=== PATIENT | male | born 1995 | race Caucasian/White ===

== ENCOUNTER 2018-01-09 08:50 | Inpatient (IN) | payer OTHER ==
[~2018-01-09] VITALS: Ht 188 cm; Wt 90.7 kg
--- NOTE | 2018-01-09 13:50 | NUR ---
Pre-Assessment Pre-assessment completed in intake office. Pt. is a 22 y/o male, A/O X 4, appears well nourished and is dressed appropriately. Pt. is seeking treatment for his alcohol abuse. Pt. states that his last use was at 0400 this morning (01/09/2017). Pt. currently only reports some anxiety regarding his admission but denies any chills, visual and physical disturbances, pain of any kind and is currently not exhibiting any symptoms of withdrawals. Pt. reports a history of Asthma (pt. has an inhaler he uses BID), Narcolepsy (for which he takes no medications), and Depression (for which he takes Cymbalta) and anxiety. Currently the pt.'s V/S are BP: 138/82 P: 83 Temp: 98.5 O2sat: 96% RR:16 Pt. currently denying any pain. Current Home Medications: Duloxetine 60mg qD Symnicort inhaler Ventolin inhaler Substance Use Hx ETOH (Beer) 6-16 beers daily for the past 7-8 months first use was at age 12 last use was a this morning at 0400 pt. drank a 6 beers. Marijuana smokes 2 g a day for the past year and 6 months. Pt. first used when he was 12 and last use was this morning at 0400. Pt. 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 Pt. states that he started with a beer a day and then continued to progress to his current use. Pt. states that he uses ETOH to "numb myself and not feel." Pt. admits "at this point I use as a form of self medication and I know it." Pt. states that he's attempted to quit 3 times in the past but has not been able to make it past one single day without drinking beer. Pt. is currently attending an [facility] 3 times a week to better handle his depression.
[2018-01-09] MEDS ORDERED: ALBU18HF2 INH (14:13)
[2018-01-09] MEDS ORDERED: DULO60CA45 PO (14:13)
[2018-01-09] MEDS ORDERED: BUDE10.22 INH (14:15)
[2018-01-09] MEDS ORDERED: THIAMINE HCL 200 MG/2 ML VIAL IM ONE (14:30)
[2018-01-09] MEDS ORDERED: LORAZEPAM 1 MG TABLET PO PRN ×2 (14:30)
[2018-01-09] MEDS ORDERED: ACETAMINOPHEN 325 MG TABLET PO PRN (14:30)
[2018-01-09] MEDS ORDERED: MAG HYDROX/AL HYDROX/SIMETH 30 ML LIQUID UDC PO PRN (14:30)
[2018-01-09] MEDS ORDERED: ONDANSETRON 4 MG/2 ML VIAL IM PRN (14:30)
[2018-01-09] MEDS ORDERED: MIRALAX 17 GM POWD.PACK PO PRN (14:30)
[2018-01-09] MEDS ORDERED: IBUPROFEN 600 MG TABLET PO PRN (14:30)
[2018-01-09] MEDS ORDERED: ONDANSETRON ODT 4 MG TAB.RAPDIS SL PRN (14:30)
[2018-01-09] MEDS ORDERED: LOPERAMIDE HCL 2 MG CAPSULE PO PRN ×2 (14:30)
[2018-01-09] MEDS ORDERED: MAGNESIUM HYDROXIDE 30 ML LIQUID UDC PO PRN (14:30)
--- NOTE | 2018-01-09 14:30 | NUR ---
Admission Assessment Pt. is a 22 y/o male, A/O X 4, appears well nourished and is dressed appropriately. Pt. admitted for the medically managed withdrawal from ETOH. Pt. states that his last use was at 0400 this morning (01/09/2017). Pt. currently only reports some anxiety regarding his admission but denies any chills, visual and physical disturbances, pain. Pt. has begun to show some signs of diaphoresis, and some facial flushing with fine hand tremors. Pt. reports a history of Asthma (pt. has an inhaler he uses BID), Narcolepsy (for which he takes no medications), and Depression (for which he takes Cymbalta) and anxiety. Currently the pt.'s V/S are BP: 137/84 P: 74 Temp: 98.6 O2sat: 97% RR:18 Pt. currently denying any pain. Current Home Medications: Duloxetine 60mg qD Symnicort inhaler Ventolin inhaler Substance Use Hx ETOH (Beer) 6-16 beers daily for the past 7-8 months first use was at age 12 last use was a this morning at 0400 pt. drank a 6 beers. Marijuana smokes 2 g a day for the past year and 6 months. Pt. first used when he was 12 and last use was this morning at 0400. Pt. reports his use began right before he turned 21 y/o. 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 Pt. states that he started with a beer a day and then continued to progress to his current use. Pt. states that he uses ETOH to "numb myself and not feel." Pt. admits "at this point I use as a form of self medication and I know it." Pt. states that he's attempted to quit 3 times in the past but has not been able to make it past one single day without drinking beer. Pt. states " drinking stops my creative process, and stops my music which in turns makes me even more depressed." When asked why this time will be different pt. responded with "I've changed my perspective on sobriety, and now look at it as a positive, and besides this time it's my choice to try to get sober." Pt. states that his alcohol abused caused him to drop out of the [employer] stating "my parents got tired of paying for school, when I kept skipping class because of my drinking." Pt. is currently attending an [facility] 3 times a week to better handle his depression. Which he states " IOP help me figure out that my depression was connected to my substance abuse." Pt. reports battling depression since being diagnosed at age 10. At the age of 12 pt. broke his left wrist which caused him to be benched from football and made him unable to play his guitar. During this time pt. became very depressed and although he denied SI pt. was sent to [email or web address] in [place] to manage his mental health for 10 weeks. After the 10 weeks pt. was sent to boarding school for 9 months in [place] to continue to treat his depression.
[2018-01-09 14:55] LABS: *AMPHETAMINE, URINE NEGATIVE (NEGATIVE); *BARBITURATE, URINE NEGATIVE (NEGATIVE); *CANNABINOID, URINE POSITIVE (NEGATIVE); *COCCAINE, URINE NEGATIVE (NEGATIVE); *OPIATE, URINE NEGATIVE (NEGATIVE); *PHENCYCLIDINE SCREEN,URINE NEGATIVE (NEGATIVE)
[2018-01-09] MEDS ORDERED: LORAZEPAM 2 MG/1 ML VIAL IM PRN (15:00)
[2018-01-09] MEDS ORDERED: 3 DAY TAPER OF VALIUM-SERENITY PROTOCOL PO PRN (15:15)
[2018-01-09 15:49] LABS: BASOPHILS # (AUTO) 0.1 K/uL (0.0-8.0); BASOPHILS % (AUTO) 0.9 % (0.0-2.0); EOSINOPHILS # (AUTO) 1.2 K/uL (0.0-0.7); EOSINOPHILS % (AUTO) 12.4 % (0.0-7.0); HEMATOCRIT 44.8 % (36.7-47.1); HEMOGLOBIN 15.2 g/dL (12.5-16.3); LYMPHOCYTES # (AUTO) 2.7 K/uL (20.0-40.0); LYMPHOCYTES % (AUTO) 26.5 % (20.5-51.5); MEAN CORPUSCULAR HGB CONC 34 g/dL (32.5-36.3); MEAN CORPUSCULAR VOLUME 94.2 fL (73.0-96.2); MONOCYTES # (AUTO) 0.8 K/uL (2.0-10.0); MONOCYTES % (AUTO) 8.2 % (0.0-11.0); NEUTROPHILS # (AUTO) 5.2 K/uL (1.8-8.9); PLATELET COUNT (AUTO) 300 K/uL (152-348); RED BLOOD CELL COUNT(AUTO) 4.76 MIL/uL (4.06-5.63)
[2018-01-09 15:59] LABS: ETHANOL < 3 MG/DL (0-0)
--- NOTE | 2018-01-09 16:00 | NUR ---
CIWA Assessment CIWA of 8. Pt. presents with diaphoresis, anxiety, and some facial flushing. Pt. has been started on his 3 day Valium taper to manage withdrawal symptoms. Will continue to monitor pt. for safety.
[2018-01-09 16:09] LABS: ALANINE AMINOTRANSFERASE 39 U/L (16-63); ALKALINE PHOSPHATASE 57 U/L (50-136); ASPARTATE AMINOTRANSFERASE 22 U/L (15-37); BILIRUBIN,TOTAL 0.7 mg/dL (0.2-1.0); CARBON DIOXIDE 26 mmol/L (21-32); CHLORIDE 102 mmol/L (98-107); GLUCOSE 87 mg/dL (74-106); MAGNESIUM 1.9 mg/dL (1.8-2.4); TOTAL PROTEIN, SERUM 7.7 g/dL (6.4-8.2); UREA NITROGEN, BLOOD 12 mg/dL (7-18)
[2018-01-09] MEDS: DIAZEPAM 10 MG TABLET PO SCH ×2 (17:03→21:01)
[2018-01-09] MEDS: SYMBICORT INH SCH (17:03)
[2018-01-09 17:45] VITALS: BP 137/84
--- NOTE | 2018-01-09 19:19 | NUR ---
End of Shift Note Pt. is a 22 y.o male admitted for the medically managed withdrawal from ETOH. Pt. was assessed by MD and placed on a 3 day valium taper to manage withdrawal symptoms. After admission pt. presented with diaphoresis, anxiety and flushed facial skin. Pt. compliant with his first dose of his taper. No PRN given during shift. Last CIWA of 8. Safety measures in place. Pt.'s care endorse to oncoming shift.
--- NOTE | 2018-01-09 19:30 | NUR ---
Start of Shift Pt admitted today, 01/09/18, for medically managed withdrawal from ETOH. Pt is listed as a full code with NKAs on a regular diet and on a 3 day Valium taper. Pt assessed in room, presents as cooperative, affect flat, appears depressed, anxious, c/o sweats and obviously moist, c/o SARKAR. Pt is disheveled with uncombed hair. This is pts first time in treatment, pt states he wanted to make a clean break from it and start recovery program after, including [facility], an alternative [facility] recovery program on mindfulness and cause and effect. Pt plans to return to his home address and continue with his IOP on d/c. Full safety measures remain in place, including fall/seizure. Will continue to monitor for duration of shift and promptly attend to all s/sxs distress or w/d.
[2018-01-09 20:00] VITALS: BP 136/86
--- NOTE | 2018-01-09 20:00 | NUR ---
CIWA 1999 CIWA score 12, aeb diaphoresis, anxiety, agitation, difficulty sleeping and tremors
[2018-01-09] MEDS: diphenhydrAMINE 50 MG CAPSULE PO PRN (23:24)
[2018-01-09] MEDS: CLONIDINE HCL 0.1 MG TABLET PO PRN (23:25)
--- NOTE | 2018-01-09 23:25 | NUR ---
PRN Meds Benedryl 50mg PO for insomnia and Clonidine 0.1mg PO for anxiety given. Will continue to monitor, reassessing in 1 hour, and promptly attending to all s/sx's w/d or distress.
[2018-01-10] VITALS: BP 144/93
--- NOTE | 2018-01-10 | NUR ---
CIWA 0000 CIWA score 7, aeb diaphoresis, anxiety, agitation, insomnia and difficulty sleeping, and tremors
--- NOTE | 2018-01-10 00:25 | NUR ---
PRN Reassessment Benedryl 50mg PO for insomnia and Clonidine 0.1mg PO for anxiety given 1 hour prior. At present pt reports "feeling chill and drowsy". Meds effective. Will continue to monitor and promptly attending to all s/sx's w/d or distress.
[2018-01-10 04:00] VITALS: BP 112/62
--- NOTE | 2018-01-10 04:00 | NUR ---
0400 Rounds 0400 VS's obtained/stable. CIWA deferred due to pt somnalence. RR 16, BP 112/62, HR 63. Will continue to monitor and promptly attend to all s/sx's distress or w/d.
--- NOTE | 2018-01-10 04:00 | NUR ---
0400 Rounds VS's obtained and stable. CIWA deferred due to pt somnalence. BP 112/62, HR 63. RR 16 with SaO2 of 97%. Will continue to monitor and attend to all s/sx's w/d or distress. Addendum: 01/10/18 at 0745 by YEIMY MCKEON RN Duplicate
--- NOTE | 2018-01-10 07:20 | NUR ---
End of Shift Endorsement given to oncoming day nurse. Pt admitted on prior day starting day 2 of a 3 day Valim taper for medically managed withdrawal from ETOH. Pt remaining free fro A/V/T hallucinations and s/sxs of w/d including sweats/diaphoresis, anxiety, agitation and restlessness, disturbed sleep pattern (Hx of narcolepsy) with frequent nocturnal awakenings and malaise, decreased appetite, abdominal cramps, and tremors. Pt affect flat, thought process normal/loose with normal/loud speech. Pt remains disheveled, no ADLs performed.PRNs for shift included Clonidine and Benedryl. Pt slept for 5 hours, with 855 mls intake, and 1 void. Pt did tell of being in [facility] treatment program for a year around age 14 r/t depression and anxiety. Full safety measure remain in place, with bed locked and in lowest position, side rails up x 2, call frost within reach and frequent rounding.
--- NOTE | 2018-01-10 07:44 | NUR ---
Start of Shift Notes: Received patient in his room. Awake, alert and verbally responsive. He appears disheveled. Room is messy and odorous with food on the floor. Diaphoresis noted. Denies S/I or H/I noted. No AV hallucinations noted. Patient is a 22 year old male admitted for ETOH withdrawal. Placed on a 3-day Valium taper as ordered. No adverse reactions noted. Encouraged maintenance of personal hygiene and space. Encouraged oral fluid intake and encouraged group participation to learn new skills to prevent relapse. Per night report, patient was given PRN Clonidine and Benadryl. Slept for 5 hours and last CIWA 7 at 0000. Will continue to monitor closely.
[2018-01-10 08:00] VITALS: BP 133/82
[2018-01-10] MEDS: ALBUTEROL SULFATE INH PRN (08:20)
[2018-01-10] MEDS: THIAMINE HCL 100 MG TABLET PO SCH (08:20)
[2018-01-10] MEDS: FOLIC ACID 1 MG TABLET PO SCH (08:20)
[2018-01-10] MEDS: MULTIVITAMINS,THERAPEUTIC TABLET PO SCH (08:20)
[2018-01-10] MEDS: DIAZEPAM 5 MG TABLET PO SCH ×3 (08:20→20:19)
--- NOTE | 2018-01-10 08:20 | NUR ---
Albuterol inhaler given: Patient complained of mild SOB. O2 sat 96%. Has PMHx of Asthma. Requested for Albuterol inhaler for mild SOB. Administered as ordered. Will monitor for effectiveness.
[2018-01-10] MEDS: SYMBICORT INH SCH ×2 (08:21→16:05)
--- NOTE | 2018-01-10 08:40 | NUR ---
SCOTT Assessment/MD Communication: SCOTT 18, patient presented with gross tremors, diaphoresis, anxiety, agitation, paresthesia with tactile disturbance, mild headache, insomnia, fatigue and complains of increased frequency in nocturnal awakenings. He states "I just toss and turn all night. But i will be OK." Offered PRNs. Support provided. Oral fluids encouraged. Notified MD. Continue current taper schedule at this time. Will continue to monitor. Addendum: 01/10/18 at 0843 by VARGHESE GARCIA LVN Amended: Links added.
--- NOTE | 2018-01-10 08:49 | NUR ---
Clarification to patient's usage: Patient verbalizes that he drinks 6 to 15 bottles (12 ounces each) of [place] IPA varying from 6 bottles up 15 bottles. Addendum: 01/10/18 at 0851 by VARGHESE GARCIA LVN Lita FAYE.
--- NOTE | 2018-01-10 08:50 | NUR ---
Re-assessment: Albuterol Patient verbalizes that PRN Albuterol was effective in relieving headache. Addendum: 01/10/18 at 1203 by VARGHESE GARCIA LVN Clarification to note: Patient states that PRN Albuterol was effective in relieving mild SOB. Not headache.
[2018-01-10] MEDS ORDERED: TUBERCULIN,PURIF.PROT.DERIV. 5 TU/0.1 ML TEST ID ONE (09:00)
--- NOTE | 2018-01-10 09:25 | NUR ---
TB test not administered: Patient refused TB test at this time. He states "I'm scared of needles." Educated patient on the risk and benefits but patient still refused. Offered 3x. Education provided. Will continue to monitor.
[2018-01-10 12:00] VITALS: BP 118/73
--- NOTE | 2018-01-10 12:09 | NUR ---
CIWA Assessment: CIWA 14, patient continues to present s/s of ETOH withdrawal m/b gross tremors, intermittent perspiration, anxiety, agitation, paresthesia with tactile disturbance, insomnia, fatigue and generalized malaise. He states "I'm just so tired." Offered PRNs. Support provided. Oral fluids encouraged.
[2018-01-10] MEDS: DULOXETINE 60 MG CAPSULE.DR PO SCH (15:28)
[2018-01-10 16:00] VITALS: BP 136/93
--- NOTE | 2018-01-10 16:00 | NUR ---
CIWA Assessment: CIWA 14, patient is seen anxious, pacing in his room. Breathing heavily. VS stable. He verbalizes "I'm really anxious. Can't you give me something?" Encouraged patient to verbalize his feelings and concerns. He is noted with sweaty palms, intermittent perspiration, restlessness, and with gross tremors. Will medicate patient as ordered.
[2018-01-10] MEDS: CLONIDINE HCL 0.1 MG TABLET PO PRN ×2 (16:07→20:19)
--- NOTE | 2018-01-10 16:07 | NUR ---
Clonidine 0.1mg PO given: Patient noted with increased anxiety. He is seen restless and pacing in his room. BP stable. He states "I'm feeling really anxious." Medicated patient with Clonidine 0.1mg PO as ordered. Will monitor for effectiveness.
--- NOTE | 2018-01-10 17:07 | NUR ---
Re-assessment: Clonidine Patient verbalizes that PRN Clonidine was effective in reducing anxiety. He verbalizes "It's working." He is currently seen doing yoga in his room to redirect himself. Will continue to monitor.
--- NOTE | 2018-01-10 19:04 | NUR ---
End of Shift Notes: Patient continues to be on 3-day Valium taper as ordered. No adverse reactions noted. Patient is currently on day 2 of his taper. VS monitored closely. No significant abnormalities noted. Withdrawal symptoms were closely monitored. Initial CIWA 18, patient presented with gross tremors, diaphoresis, paresthesia with tactile disturbance, mild headache, insomnia at night, hyper somnolence during the day, generalized fatigue and malaise, restlessness, anxiety and agitation. PRN Clonidine 0.1mg PO given at 1607 due to anxiety with help after 1 hour. Last CIWA 14 at 1600. Patient verbalizes that Valium has been effective in reducing his withdrawal symptoms. He was unable to participate in group and activities. He prefers to take naps in the day. PRN Albuterol inhaler given at 0820 for SOB with hx of asthma with help. Calm, cooperative with staff and treatment. Oral fluids encouraged. All needs met and attended. Will continue to monitor closely.
--- NOTE | 2018-01-10 19:50 | NUR ---
START OF SHIFT NOTE Rcvd report outgoing nurse, pt is currently in group therapy. Pt is a 22 y/o male A/O to person, place, time, and purpose. Pt was admitted for medically supervised withdrawal from ETOH. Pt is c/o sweats, hot flashes, chills, and anxiety. Pt is presenting w/ tremors, flat affect, and depressed mood. Pt denies any S/I and H/I. PRN Clonidine 0.1mg @ 1600 given for sweats, hot flashes, and chills. Last CIWA 14 @ 1600. Call light is within reach. Pt will continue to be monitored and needs met.
[2018-01-10 20:00] VITALS: BP 116/83
--- NOTE | 2018-01-10 20:00 | NUR ---
CIWA ASSESSMENT CIWA 14. Pt c/o sweats, hot flashes, and anxiety. Pt presenting w/ depressed mood, flat affect, and restlessness. V/S: T:98.3, P:71, RR:16, SPO2:98, and BP:116/83.
[2018-01-10] MEDS: diphenhydrAMINE 50 MG CAPSULE PO PRN (20:19)
--- NOTE | 2018-01-10 20:19 | NUR ---
PRN BENADRYL AND CLONIDINE ADMINISTRATION Benadryl 50mg and Clonidine 0.1mg given. Pt c/o sweats, hot flashes, anxiety, and insomnia. Will reassess pt in 1 hr.
--- NOTE | 2018-01-10 21:19 | NUR ---
PRN BENADRYL AND CLONIDINE REASSESSMENT Pt is in bed w/ his eyes closed. Pt's respirations are even and unlabored.
--- NOTE | 2018-01-11 | NUR ---
CIWA DEFERRED Pt is in bed w/ his eyes closed. Pt's respirations are unlabored and even.
--- NOTE | 2018-01-11 04:00 | NUR ---
CIWA DEFERRED Pt is in bed w/ his eyes closed. Pt's respirations are unlabored and even.
--- NOTE | 2018-01-11 07:19 | NUR ---
END OF SHIFT NOTE Endorsed pt to oncoming nurse, pt is currently in his room. Pt is a 22 y/o male A/O to person, place, time, and purpose. Pt was admitted for medically supervised withdrawal from ETOH. Pt completed day 2 of a 3 day Valium taper. Pt is c/o sweats, hot flashes, chills, and anxiety. Pt is presenting w/ tremors, flat affect, and depressed mood. PRN Clonidine 0.1mg and Benadryl 50mg given @ for sweats, chills, and insomnia, noted effective. Pts fluid intake was 1000ml, he voided 2 times, and had 1 BM. Pt slept for 8 hrs. Last CIWA 14 @ 0000. Call light is within reach.
--- NOTE | 2018-01-11 07:33 | NUR ---
Start of Shift Notes: Received patient in his room. Awake, alert and verbally responsive. Upon waking, he is noted with poor eye contact, worried, irritable and pre-occupied. He appears disheveled. Clothes throw on the floor and dirty linens on the floor. Room is messy and odorous. Encouraged maintenance of personal hygiene and space. Denies S/I or H/I noted. No AV hallucinations noted. Patient is a 22 year old male admitted for ETOH withdrawal. Placed on a 3-day Valium taper as ordered. No adverse reactions noted. Encouraged maintenance of personal hygiene and space. Encouraged oral fluid intake and encouraged group participation to learn new skills to prevent relapse. Per night report, patient was given PRN Clonidine and Benadryl. Slept for 8 hours and last CIWA 14 at 0000. Will continue to monitor closely.
[2018-01-11 08:00] VITALS: BP 107/74
--- NOTE | 2018-01-11 08:00 | NUR ---
CIWA Assessment/MD Communication:: CIWA 19, patient presented with gross tremors, sweating, anxiety, agitation, irritability, cognitive dissonance, nervousness, abdominal spasms, decreased appetite, emotional volatility, increased emotional amplitude, malaise, fatigue, vivid dreams, increased started response, sensitivity to light. Patient states "I'm not feeling too well, I can't keep still and I feel like i have to be rude to get what I need around here." Patient was demanding for his washed clothes. Acknowledged patient's feelings and concerns. Reassurance and redirection provided. Notified MD Robbins of patient's CIWA score. Per MD, continue current taper order at this time.
[2018-01-11] MEDS: MULTIVITAMINS,THERAPEUTIC TABLET PO SCH (08:17)
[2018-01-11] MEDS: DULOXETINE 60 MG CAPSULE.DR PO SCH (08:17)
[2018-01-11] MEDS: ALBUTEROL SULFATE INH PRN (08:17)
[2018-01-11] MEDS: SYMBICORT INH SCH ×2 (08:17→16:04)
--- NOTE | 2018-01-11 08:17 | NUR ---
Albuterol inhaler given: Patient complained of mild SOB. VS stable. O2 sat 97%. Medicated patient with Albuterol inhaler as ordered. Will monitor for effectiveness.
[2018-01-11] MEDS: THIAMINE HCL 100 MG TABLET PO SCH (08:18)
[2018-01-11] MEDS: DIAZEPAM 5 MG TABLET PO SCH ×2 (08:18→20:09)
[2018-01-11] MEDS: FOLIC ACID 1 MG TABLET PO SCH (08:18)
--- NOTE | 2018-01-11 08:47 | NUR ---
Re-assessment: Albuterol Patient verbalizes that PRN Albuterol was effective in relieving SOB.
[2018-01-11] MEDS: CLONIDINE HCL 0.1 MG TABLET PO PRN ×2 (11:41→22:25)
--- NOTE | 2018-01-11 11:41 | NUR ---
Clonidine 0.1mg PO given: Patient left group and complained of anxiety. He was noted to be hyperventilation and pacing in his room. He verbalizes "Can I please get something for anxiety? Group was a little bit too much." Encouraged patient to verbalize his feelings and concerns. Medicated patient with Clondine 0.1mg PO as ordered. Will monitor for effectiveness.
[2018-01-11 12:00] VITALS: BP 134/96
--- NOTE | 2018-01-11 12:00 | NUR ---
LESTER Assessment/MD Communication: SCOTT 16, patient continues to exhibit s/s of withdrawal m/b increase in anxiety, sweats and emotional amplitude, fatigue, decreased appetite, nervousness and irritability. Support provided. Offered PRNs.
--- NOTE | 2018-01-11 12:41 | NUR ---
Re-assessment: Clonidine 0.1mg PO Patient verbalizes relief from anxiety. He states "It's about a 3 right now." PRN Clonidine was effective in reducing his anxiety.
[2018-01-11 16:00] VITALS: BP 113/69
--- NOTE | 2018-01-11 16:37 | NUR ---
CIWA Assessment: CIWA 11, patient presented with anxiety, agitation, gross tremors, and sweaty palms. He appears irritable, agitated and disheveled. He appears worried about the discharge process. Reassurance was provided. Allowed patient to spoke with Francois from administration, allowed patient for a phone call. He is seen pacing along the hallway and in his room. Offered support and PRNs. Will continue to monitor.
--- NOTE | 2018-01-11 19:01 | NUR ---
End of Shift Notes: Patient continues to be on 3-day Valium taper as ordered. No adverse reactions noted. Patient is currently on day 2 of his taper. VS monitored closely. No significant abnormalities noted. Withdrawal symptoms were closely monitored. Initial CIWA 19, patient presented with gross tremors, diaphoresis, paresthesia with tactile disturbance, generalized fatigue and malaise, restlessness, anxiety and agitation, cognitive dissonance, nervousness, diaphoresis, irritability, decreased appetite, emotional volatility and generalized discomfort. PRN Clonidine 0.1mg PO given at 1141 for anxiety with help after 1 hour. Last CIWA 11 at 1600. Patient verbalizes that Valium has been effective in reducing his withdrawal symptoms. He was unable to participate in group and activities. He prefers to take naps in the day. PRN Albuterol inhaler given at 0817 for SOB with hx of asthma with help. Calm, cooperative with staff and treatment. Oral fluids encouraged. All needs met and attended. Will continue to monitor closely.
--- NOTE | 2018-01-11 19:30 | NUR ---
Start of Shift Pt admitted 01/09/18 for medically managed withdrawal from ETOH. Pt remains listed as a full code with NKA's and on a regular diet. Pt completing 3 day Valium taper with 2100 evening meds tonight. Pt appears depressed about not being d/c'd on , but committed to completing detox. Room appears unkempt with empty drink and food containers and clothing strewn about and on floor. Affect flat, eye contact avoidant, moisture visible on forehead and felt on upper arm, hands tremulous. Pt listing dissatisfactions with miscommunications between staff/doesn't feel to be a priority, length of time without clothes. Pt reassured and accepting. Aftercare plans remain unchanged as returning home, attending current IOP, and recovery program of "[facility]" cause/effect, mindfullness in program called "[facility] [facility]". Full safety precautions remain in place, including fall and seizure, frequent rounding. Will monitor pt for duration of shift, promptly attending to all s/sx's w/d or distress.
[2018-01-11 20:00] VITALS: BP 124/66
--- NOTE | 2018-01-11 20:00 | NUR ---
CIWA Score 11 amb diaphoresis/intermittent perspiration, hand tremors, depression, anxiety, restlessness, anhedonia, and fatigue/malaise.
[2018-01-11] MEDS: diphenhydrAMINE 50 MG CAPSULE PO PRN (22:23)
--- NOTE | 2018-01-11 22:25 | NUR ---
PRN Meds Clonidine 0.1mg PO for anxiety, diaphoresis, and Benedryl 50mg PO for insomnia given. Will continue to monitor and reassess in 1 hour.
--- NOTE | 2018-01-11 23:25 | NUR ---
PRN Reassessment Clonidine 0.1mg PO for anxiety, diaphoresis, and Benedryl 50mg PO for insomnia given 1 hour prior. At present, pt reports feeling more comfortable, decreased sweating/anxiety. Meds partially effective. 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 Previous nights falls asleep usually between 12:30 to 1am. Will continue to monitor.
[2018-01-12] VITALS: BP 130/72
--- NOTE | 2018-01-12 | NUR ---
CIWA Score 8 amb diaphoresis/intermittent perspiration, hand tremors, depression, anxiety, restlessness, anhedonia, and fatigue, difficulty sleeping/insomnia.
[2018-01-12 04:00] VITALS: BP 116/76
--- NOTE | 2018-01-12 04:00 | NUR ---
CIWA Score 8 aeb diaphoresis/intermittent perspiration, hand tremors, depression, anxiety, agitation, fatigue, and somnalance.
[2018-01-12 05:05] LABS: HEPATITIS B SURFACE AG Negative (Negative)
--- NOTE | 2018-01-12 07:13 | NUR ---
End of Shift Endorsement litigation paralegal to [facility] day nurse. Pt admitted 01/09/18 for medically managed withdrawal from ETOH. Pt remains listed as a full code with NKA's and on a regular diet. Pt completing 3 day Valium taper 01/11/18. Pt depressed about not being d/c'd on , but committed to completing detox. PRN's for shift include Benedryl for insomnia, and Clonidine for anxiety/diaphoresis. Pt slept for 7 hours with 791 mls intake and 2 voids. Pt arousable and cooperative for midnight and 0400 VS's/CIWA scoring. Last CIWA 8 at 0400. Pt remains depressed/disappointed not being d/c'd today, but committed to completing program. Affect flat, irritable, anxious/restless with poor eye contact. Some moisture on brow and upper arm. Room remains unkempt with empty food and drink containers, clothes strewn about. Pt cooperative and arousable for midnight and 0400 VS's/CIWA scoring. Safety measures remain in place, including fall and seizure.
--- NOTE | 2018-01-12 07:23 | NUR ---
Start of Shift Notes: Received patient in his room. Alert and verbally responsive. Denies S/I or H/I noted. No AV hallucinations noted. Appears somnotlent upon waking. He appears irritable and pre-occupied. He appears disheveled and unshaven. Clothes throw on the floor and dirty linens on the floor. Room is messy and odorous. Encouraged maintenance of personal hygiene and space. Patient is a 22 year old male admitted for ETOH withdrawal. Placed on a 3-day Valium taper as ordered. No adverse reactions noted. Patient is on his day 3 today. Encouraged maintenance of personal hygiene and space. Encouraged oral fluid intake and encouraged group participation to learn new skills to prevent relapse. Per night report, patient was given PRN Clonidine and Benadryl. Slept for 7 hours and last CIWA 8. Will continue to monitor closely.
[2018-01-12 08:00] VITALS: BP 117/71
[2018-01-12] MEDS: MULTIVITAMINS,THERAPEUTIC TABLET PO SCH (08:07)
[2018-01-12] MEDS: THIAMINE HCL 100 MG TABLET PO SCH (08:07)
[2018-01-12] MEDS: DULOXETINE 60 MG CAPSULE.DR PO SCH (08:07)
[2018-01-12] MEDS: FOLIC ACID 1 MG TABLET PO SCH (08:08)
[2018-01-12] MEDS: SYMBICORT INH SCH (08:09)
[2018-01-12] MEDS: CLONIDINE HCL 0.1 MG TABLET PO PRN ×3 (08:09→22:52)
--- NOTE | 2018-01-12 08:37 | NUR ---
[facility] Assessment: CIWA 10, patient presented with irritability, unstable mood, anxiety, agitation, gross tremors, dyspepsia, gross tremors, intermittent perspiration, tactile disturbance and fatigue, he also complains of heart palpitations when he is anxious. He verbalizes "My heart races when I am anxious. I can't wait to be discharged." Offered PRN meds. Support provided. Will continue to monitor and encourage oral fluid intake.
--- NOTE | 2018-01-12 11:05 | NUR ---
Clonidine 0.1mg/Mylanta 30 cc PO given: Patient complained of increased anxiety, sweats. Noted with sweaty palms and hyperveral. BP stable. He also verbalizes "I have a little bit of GI upset right now." Medicated patient with Clonidine 0.1mg PO and Mylanta 30 CC PO as ordered. Will monitor for effectiveness.
[2018-01-12 12:00] VITALS: BP 102/63
--- NOTE | 2018-01-12 12:05 | NUR ---
Re-assessment: Clonidine/Mylanta Patient verbalizes relief from anxiety and GI upset. He verbalizes "That medication you gave me helped a lot. I'm going to try and drink more water and maybe more Sprite." PRN Clonidine and Mylanta were effective.
--- NOTE | 2018-01-12 12:36 | NUR ---
CIWA Assessment: CIWA 9, patient continues to present with anxiety, agitation, irritability and dyspepsia, and gross tremors. He is able to be redirectable by talking to him about music and art. Will continue to monitor and offer support.
--- NOTE | 2018-01-12 14:01 | NUR ---
Therapist prompted client to attend group sessions.
[2018-01-12 16:00] VITALS: BP 118/71
--- NOTE | 2018-01-12 16:30 | NUR ---
CIWA Assessment: CIWA 8, patient presented with gross tremors, anxiety, agitation and restlessness. Easily irritable and with complains of generalized discomfort. Encouraged patient to verbalize his feelings and concerns. Oral fluids encouraged. Support provided. Will continue to monitor.
--- NOTE | 2018-01-12 17:31 | NUR ---
MD Communication: Symbicort inhaler Patient requested his Symbicort inhaler to be given 2 x a day, in the morning and at bedtime. Notified Dr. Robbins and ESHA'd order. Orders noted and carried out. MD is unable to enter orders at this time.
--- NOTE | 2018-01-12 19:09 | NUR ---
End of Shift Notes: Patient completed his Valium taper and will be discharging tomorrow. No adverse reactions noted. VS monitored closely. No significant abnormalities noted. Withdrawal symptoms were closely monitored. Initial CIWA 10, patient presented with gross tremors, diaphoresis, paresthesia with tactile disturbance, generalized fatigue and malaise, restlessness, anxiety and agitation, diaphoresis, irritability, decreased appetite, and generalized discomfort. PRN Clonidine 0.1mg PO given at 1105 and Mylanta 30 cc PO for anxiety and dyspepsia with help after 1 hour. Last CIWA 8 at 1600. Patient verbalizes that Valium has been effective in reducing his withdrawal symptoms. Participated in group and activities during the day. Calm, cooperative with staff and treatment. Oral fluids encouraged. All needs met and attended. Will continue to monitor closely.
--- NOTE | 2018-01-12 19:30 | NUR ---
Start of Shift Pt admitted 01/09/18 for medically managed withdrawal from ETOH. Pt remains listed as a full code with NKA's and on a regular diet. Pt to be d/c'd in am on to home. Pt found in room, presents with flat affect, depressed with poor eye contact. Clothing is fresh. Pt withdrawn and apathetic with racing thoughts. Moisture to forehead, hands tremulous, anxious, restless with malaise. Coping skills and stress management skills reviewed with pt, pt acknowledges understanding. Will continue to monitor pt for duration of shift promptly attending to all s/sx's w/d or distress.
[2018-01-12 20:00] VITALS: BP 149/82
[2018-01-12] MEDS: SYMBICORT 80/4.5 IH SCH (21:10)
--- NOTE | 2018-01-12 22:00 | NUR ---
CIWA Score 8 aeb diaphoresis/intermittent perspiration, hand tremors, depression, anxiety, restlessness, anhedonia, and fatigue, difficulty sleeping/insomnia.
[2018-01-12] MEDS: diphenhydrAMINE 50 MG CAPSULE PO PRN (22:52)
--- NOTE | 2018-01-12 22:52 | NUR ---
PRN Meds Clonidine 0.1 mg PO for anxiety and Benedryl 50mg PO for insomnia given. Will continue to monitor, reassessing in 1 hour, and promptly attend to all s/sx's distress or w/d.
--- NOTE | 2018-01-12 23:52 | NUR ---
PRN Reassessment Clonidine 0.1 mg PO for anxiety and Benedryl 50mg PO for insomnia given 1 hour prior. At present pt reports feeling decreased anxiety and drowsy. Meds effective
[2018-01-13] VITALS: BP 113/71
--- NOTE | 2018-01-13 | NUR ---
CIWA Score 8 aeb diaphoresis/intermittent perspiration, hand tremors, depression, anxiety, restlessness, anhedonia, and fatigue, difficulty sleeping/insomnia.
[2018-01-13 04:00] VITALS: BP 115/80
--- NOTE | 2018-01-13 04:00 | NUR ---
CIWA Score 7 aeb diaphoresis, hand tremors, depression, anxiety, restlessness, anhedonia, and fatigue, difficulty sleeping, frequent waking.
--- NOTE | 2018-01-13 07:30 | NUR ---
START OF SHIFT Pt is a 22 yr old male, AA&Ox4. Pt was admitted on 01/09/18 for ETOH withdrawal and has completed a 3 day Valium taper. Received report from shift boss nurse. Pt received Clonidine PO PRN and Benadryl PO PRN during the night. Medication was effective. Pt slept for 6 hrs. Last CIWA score was 7 during the night. Pt is to be discharged today. Pt is c/o anxiety due to discharge. Skin is intact, warm and moist to touch. Safety precautions observed. Call light is within each. Will continue to monitor.
--- NOTE | 2018-01-13 07:41 | NUR ---
End of Shift Endorsement given to [facility] day nurse. Pt admitted 01/09/18 for medically managed withdrawal from ETOH. Pt remains listed as a full code with NKA's and on a regular diet. Pt to be d/c'd this am on to home. Pt slept for 6 hours, with 1500 mls intake and 3 voids. PRN's for shift included Clonidine 0.1mg PO for anxiety and Benedryl 50mg PO for insomnia. Pt seems confident in able to maintain sobriety, coping and stress management skills discussed as essential to maintenance of recovery. Triggers are co-enablers and inability to process negative emotions.
[2018-01-13 08:00] VITALS: BP 118/69
--- NOTE | 2018-01-13 08:00 | NUR ---
CIWA 6 Pt is c/o anxiety/agitation due to discharge and is noted with clammy skin. Pt is noted restless. CIWA score is 6.
[2018-01-13] MEDS: THIAMINE HCL 100 MG TABLET PO SCH (09:18)
[2018-01-13] MEDS: DULOXETINE 60 MG CAPSULE.DR PO SCH (09:18)
[2018-01-13] MEDS: FOLIC ACID 1 MG TABLET PO SCH (09:18)
[2018-01-13] MEDS: MULTIVITAMINS,THERAPEUTIC TABLET PO SCH (09:18)
[2018-01-13] MEDS: SYMBICORT 80/4.5 IH SCH (09:21)
[2018-01-13 12:00] VITALS: BP 123/74
--- NOTE | 2018-01-13 13:12 | NUR ---
DISCHARGE NOTE Pt is a 22 yr old male, AA&Ox4. pt was admitted on for ETOH withdrawal and completed a 3 day Valium taper as ordered. Medication jessica well. Pt was cooperative with medication regimen and plan of care. Pt was noted with anxiety but is able to cope with anxiety level. No SI/HI noted. Pt was educated on discharged summary and prescriptions. Pt was able to verbalize understanding. Pt was discharged off the unit at 1304 in stable condition to [facility]. Pt left with all belongings, valuable and home medications.
== END 2018-01-13 13:06 | disposition home or self-care (01) | DRG 895 ==
LOC: SRC 13:20
PROVIDERS: ADMIT Family Medicine Addiction Medicine; ATTEND Family Medicine Addiction Medicine
PROC: HZ2ZZZZ Detoxification Services for Substance Abuse Treatment (ICD-10-PCS; principal; 2018-01-09)
PROC: HZ41ZZZ Group Counseling for Substance Abuse Treatment, Behavioral (ICD-10-PCS; 2018-01-11)
PROC: HZ31ZZZ Individual Counseling for Substance Abuse Treatment, Behavioral (ICD-10-PCS; 2018-01-12)
DX: F10.230 Alcohol dependence with withdrawal, uncomplicated (principal); F33.1 Major depressive disorder, recurrent, moderate; F12.10 Cannabis abuse, uncomplicated; F11.23 Opioid dependence with withdrawal; F15.10 Other stimulant abuse, uncomplicated; Y90.0 Blood alcohol level of less than 20 mg/100 ml; G47.419 Narcolepsy without cataplexy; Z81.3 Family history of other psychoactive substance abuse and dependence; J45.40 Moderate persistent asthma, uncomplicated; F41.9 Anxiety disorder, unspecified; F17.210 Nicotine dependence, cigarettes, uncomplicated
CPT/HCPCS: 36415; 80307; 80349; 83735; 85025; 86592; 86705; 86803; 87340; 87806; A4663; G0480; J3411; J3535; Q0163